=== PATIENT | male | born 1995 | race Caucasian/White ===

== ENCOUNTER 2019-07-04 15:07 | Inpatient (IN) | payer MEDICAID ==
[~2019-07-04] VITALS: Ht 182.9 cm; Wt 90.7 kg
--- NOTE | ~2019-07-04 | OP ---
[address] [address] OPERATIVE REPORT Name: WALESKA CAPUTO Room: [address] IN .R.#: [id number] Admission: 07/04/19 Attend Phys: Christofer Doyle Discharge: 07/05/19 Date of : 96 Report #: [id number] THIS REPORT FOR: //name// CC: Deshawn Alonzo DATE OF SERVICE: 07/05/2019 INDICATION FOR PROCEDURE: The patient is a 24-year-old gentleman who was admitted through the Emergency Department with severe left flank pain. Evaluation revealed a large 7 mm left ureteral calculus. After discussing treatment options in detail, he presents for cystoscopy with left ureteroscopic stone extraction with holmium laser lithotripsy and stent placement. PREOPERATIVE DIAGNOSIS: Large ureteral calculus. POSTOPERATIVE DIAGNOSIS: Large ureteral calculus. PROCEDURE: Cystoscopy, left retrograde pyelogram, left ureteroscopic stone extraction using holmium laser lithotripsy, left stent placement. SURGEON: Jed Lan MD ANESTHESIA: General. COMPLICATIONS: None. ESTIMATED BLOOD LOSS: 10 mL. PROCEDURE IN DETAIL: The patient was consented for the above procedure, given broad spectrum IV antibiotics preoperatively. He was given general anesthetic and placed in a dorsal lithotomy position, he was prepped and draped in the usual sterile fashion over the genitalia. The stone was not seen on fluoroscopy. Cystoscopy was performed with a 22-Welsh sheath and 30 degree lens, which was somewhat difficult due to a narrowed caliber urethra. I could look in easily with the 17-Welsh scope, but I could not work through the 17-Welsh scope, so I inserted the 22-Welsh scope. Gently I was able to get into the bladder, but it was fairly snug. Next, a left retrograde pyelogram was performed with a 5-Welsh Pollack catheter and half strength Omnipaque, which revealed a filling defect in the distal third of the ureter just below the vessels consistent with the stone seen on CT. Based on that, a 0.035 floppy-tipped guidewire was passed up the left ureter under fluoroscopic guidance. It was difficult to get this wire past the stone, so I had to use a combination of the Pollack catheter and a guidewire to access the ureter past the stone and was able to get the wire up into the renal pelvis without too much difficulty. Next, the cystoscope was removed leaving the guide[place] [address] OPERATIVE REPORT Name: WALESKA CAPUTO Room: [address]#: [id number] Admission: 07/04/19 Attend Phys: Christofer oDyle Discharge: 07/05/19 Date of : 96 Report #: [id number] The semirigid ureteroscope was used to attempt ureteroscopy, but its ureteral orifice was too snug for the scope to pass. So, the scope was removed. The trocar for an 11/13 Welsh ureteral access sheath was passed over the wire and up the distal ureter under fluoroscopic guidance for a soft ureteral dilation. The trocar was removed. Ureteroscope was replaced and I was able to perform ureteroscopy alongside the wire until this large stone was identified. Next, a 365 micron holmium laser was used to fragment the stone into manageable size pieces. All the larger pieces were removed and deposited in the bladder. The remaining pieces all appeared to be very small and passable after removing several large stone fragments. Once I was confident that all the larger stones were removed, I removed the ureteroscope, backloaded the cystoscope over the guidewire, reinserted the cystoscope and then placed a 4.8 x 28 double-J stent over the wire with good curl noted in the renal pelvis and into the bladder after removing the wire. This was confirmed with fluoroscopy and cystoscopy. The fragments were then removed from the bladder via the cystoscope sheath. The cystoscope was removed. Lidocaine gel was placed per urethra for local anesthesia. The patient was awakened and sent to recovery room in stable condition. We will leave the stent in for 1 week and remove it in the office. By: [id number] Lan MD /claudia
[2019-07-04 15:22] VITALS: BP 146/89
[2019-07-04 15:39] LABS: URINE BILIRUBIN NEGATIVE (Negative); URINE BLOOD 2+ (Negative); URINE COLOR YELLOW; URINE GLUCOSE-RANDOM NEGATIVE (Negative); URINE KETONES NEGATIVE (Negative); URINE LEUKOCYTES-REFLEX TRACE (Negative); URINE NITRITE-REFLEX NEGATIVE (Negative); URINE PROTEIN TRACE (Negative); URINE UROBILINOGEN 0.2 E.U./dl (0.2-1.0)
[2019-07-04 15:46] LABS: ABSOLUTE BASOPHILS 0.1 thou/uL (0.0-0.2); ABSOLUTE EOSINOPHILS 0.7 thou/uL (0.0-0.7); ABSOLUTE LYMPHOCYTES 2.9 thou/uL (0.8-5.3); ABSOLUTE MONOCYTES 1.5 thou/uL (0.0-1.2); BASOPHILS 0.8 %; EOSINOPHILS 4.9 %; HEMATOCRIT 42.2 % (42.0-52.0); HEMOGLOBIN 14.6 gm/dL (14.0-18.0); LYMPHOCYTES 20.6 %; MCH 31.2 pg (26.0-34.0); MCHC 34.7 g/dL (28.0-37.0); MCV 89.9 fL (80.0-100.0); MONOCYTES 10.4 %; MPV 10.1 fl. (7.2-11.1); NUCLEATED RBCS 0 /100WBC; PLATELET COUNT* 247 thou/uL (150-400); POLYS 63.3 %; RDW-CV 13.3 % (10.5-14.5); WBC 14.2 thou/uL (4.0-11.0)
[2019-07-04 15:47] LABS: URINE CLARITY HAZY
[2019-07-04 15:54] LABS: CREATININE 1.5 mg/dL (0.6-1.3); POTASSIUM 5.9 mmol/L (3.5-5.1)
[2019-07-04 15:55] LABS: BACTERIA-REFLEX None Seen /HPF (None Seen); CASTS None Seen /LPF (None Seen); CRYSTALS None Seen /LPF (None Seen); MUCUS 0-3 Light strn/LPF (None Seen); SQUAMOUS 4-10 Moderate /LPF (0-3); URINE WBC-REFLEX None Seen /HPF (0-5)
[2019-07-04 15:58] LABS: ALBUMIN 3.9 g/dL (3.4-5.0); TOTAL BILIRUBIN 0.7 mg/dL (<0.1-1.0); TOTAL PROTEIN 7.5 g/dL (6.4-8.2)
[2019-07-04 20:28] VITALS: BP 118/78
[2019-07-04 20:40] VITALS: BP 131/80
--- NOTE | 2019-07-05 05:29 | NUR ---
PT ARRIVED FROM THE ER AT 2029. VITALS STABLE RA. IV FLUIDS RUNNING ORDERED. PT SLEEPING QUIETLY THROUGH THE NIGHT. PAIN CONTROLLED WITH FENTANYL. NO C/O NAUSEA OR VOMITING. UP AD CARLY. GIRLFRIEND AT BEDSIDE. WILL CONTINUE TO MONITOR.
[2019-07-05 08:10] VITALS: BP 125/81
[2019-07-05 10:40] LABS: HEMATOCRIT 41.9 % (42.0-52.0); HEMOGLOBIN 14.5 gm/dL (14.0-18.0); MCH 31.1 pg (26.0-34.0); MCHC 34.6 g/dL (28.0-37.0); MPV 10.5 fl. (7.2-11.1); RBC 4.66 mil/uL (4.50-6.00); WBC 10.1 thou/uL (4.0-11.0)
[2019-07-05 10:53] LABS: CALCIUM 8.2 mg/dL (8.5-10.1); CREATININE 1.3 mg/dL (0.6-1.3)
[2019-07-05 10:54] LABS: POTASSIUM 3.8 mmol/L (3.5-5.1)
[2019-07-05 13:53] VITALS: BP 125/81; BP 142/49
[2019-07-05] MEDS ORDERED: CIPRO500 M1 PO (15:25)
[2019-07-05] MEDS ORDERED: NICOTINE TRANSD21 M1 TOP (15:26)
[2019-07-05 15:27] VITALS: BP 142/49
--- NOTE | 2019-07-05 18:05 | NUR ---
PATIENT IN PACU SINCE 1414. IVF AND SCHED ABX GIVEN THIS SHIFT ORDERED. PER DAT FROM PACU PATIENT MAY DISCHARGE TO HOME THIS EVENING. DISCHARGE PAPERS COMPLETE FROM DR. CHÁVEZ. AWAITING PATIENT TO RETURN TO ROOM. REG DIET RESUMED.
[2019-07-05 18:28] VITALS: BP 143/83
--- NOTE | 2019-07-05 19:06 | NUR ---
PATIENT BACK FROM PACU AT 1800, RATING SCROTAL PAIN A 3/10. PRN HYDROCODONE GIVEN WITH GOOD RELIEF NOTED. IV DC'D. PATIENT TOLERATED REG DIET. VERBALIZES UNDERSTANDING OF PAPEWORK AND SCRIPTS. PATIENT AMBULATED OUT WITH ALL BELONGINGS AND NURSING STAFF.
== END 2019-07-05 19:08 | disposition home or self-care (01) | DRG 661 ==
LOC: M.ERS 15:07 → EDBD 16:54 → M.TBA-ER 16:54 → M.ORTHSURG 16:54
PROVIDERS: Family Medicine; Nurse Practitioner Adult Health; ADMIT Internal Medicine
PROC: 0TC78ZZ Extirpation of Matter from Left Ureter, Via Natural or Artificial Opening Endoscopic (ICD-10-PCS; principal; 2019-07-05)
PROC: BT1F1ZZ Fluoroscopy of Left Kidney, Ureter and Bladder using Low Osmolar Contrast (ICD-10-PCS; principal; 2019-07-05)
PROC: 0T778DZ Dilation of Left Ureter with Intraluminal Device, Via Natural or Artificial Opening Endoscopic (ICD-10-PCS; principal; 2019-07-05)
DX: N13.2 Hydronephrosis with renal and ureteral calculous obstruction (principal); F17.210 Nicotine dependence, cigarettes, uncomplicated; R31.29 Other microscopic hematuria; Z88.6 Allergy status to analgesic agent; Z87.442 Personal history of urinary calculi; Z84.1 Family history of disorders of kidney and ureter

== ENCOUNTER 2019-07-11 16:17 | Inpatient (IN) | payer MEDICAID ==
[~2019-07-11] VITALS: Ht 182.9 cm; Wt 90.7 kg
--- NOTE | ~2019-07-11 | OP ---
[address] [address] OPERATIVE REPORT Name: WALESKA CAPUTO Room: [address] IN .R.#: [id number] Admission: 07/11/19 Attend Phys: Connor Zhang MD Discharge: Date of : 96 Report #: [id number] THIS REPORT FOR: //name// CC: Connor Alonzo DATE OF SERVICE: 07/13/2019 UROLOGY OPERATIVE NOTE PREOPERATIVE DIAGNOSIS: Left nephrolithiasis. POSTOPERATIVE DIAGNOSIS: Left nephrolithiasis. PROCEDURES PERFORMED: 1. Urethral dilation. 2. Cystoscopy. 3. Left ureteral stent removal. 4. Left ureteroscopy. Staff: Dr. Jayden Wolfe. COMPLICATIONS: None. DRAINS: None. SPECIMENS: None. ESTIMATED BLOOD LOSS: None. INDICATIONS: The patient is a 24-year-old gentleman who presented with a left distal ureteral stone and underwent ureteroscopy with Dr. Lan last week. He presented overnight with increasing left flank pain. CT demonstrated the left ureteral stent to have migrated distally into the proximal ureter. He had some mild hydronephrosis as well as what appeared to be a small ureteral fragment. Decision was made to proceed with ureteral stent removal and ureteroscopy. DESCRIPTION OF PROCEDURE: On 07/13/2019, after consent was obtained, the patient was taken to the operating room and placed in supine position. He was then placed under general anesthesia. He received preoperative IV Cipro for antibiotic coverage. He was then placed in dorsal lithotomy and his genitals were prepped and draped in normal sterile fashion. Next, I began the procedure by attempting to pass a 22.5-Irish rigid cystoscope with resistance at the urethral meatus. Urethral sounds were then utilized. I dilated the urethra from 18 to 26-Irish sequentially without difficulty. At this point, the 22.5-Irish cystoscope was inserted without difficulty. Once into the bladder, [place] [address] OPERATIVE REPORT Name: WALESKA CAPUTO Room: [address] IN [facility].#: [id number] Admission: 07/11/19 Attend Phys: Connor Zhang MD Discharge: Date of : 96 Report #: [id number] identified the left ureteral stent. Using alligator forceps to remove this without difficulty. I then tried to cannulate the left UO with a sensor wire; however, met resistance just within the UO. At this point, a 5-Irish open-ended stent was then inserted, and using this, I was able to cannulate the distal UO and a sensor wire was passed up the upper pole. I then went through the cystoscope and I backloaded the ureteroscope over the sensor wire, which was passed up to the renal pelvis under fluoroscopic guidance. I then performed ureteroscopy visualizing the entire ureter, which was free of any injury and/or stone burden. The distal left ureter did take an abrupt J hook, but good visualization was obtained and there was no evidence of any stone burden. At this point, I then reinserted the cystoscope. I evacuated out the bladder and observed efflux of urine from the left UO. The patient's bladder was emptied. Scope was withdrawn. I inserted a lidocaine lubricating into the urethra. By: [id number] Wolfe MD /nt
[~2019-07-11 16:17] MED LIST: CIPRO500 M1 PO; NICOTINE TRANSD21 M1 TOP
[2019-07-11 16:27] VITALS: BP 133/99
[2019-07-11 16:40] LABS: URINE BILIRUBIN NEGATIVE (Negative); URINE BLOOD 3+ (Negative); URINE CLARITY SL CLOUDY; URINE COLOR YELLOW; URINE GLUCOSE-RANDOM NEGATIVE (Negative); URINE KETONES NEGATIVE (Negative); URINE LEUKOCYTES-REFLEX 1+ (Negative); URINE NITRITE-REFLEX NEGATIVE (Negative); URINE PROTEIN 2+ (Negative); URINE SPECIFIC GRAVITY 1.025 (1.005-1.030); URINE UROBILINOGEN 0.2 E.U./dl (0.2-1.0)
[2019-07-11 16:46] LABS: SQUAMOUS >10 Many /LPF (0-3)
[2019-07-11 16:48] LABS: BACTERIA-REFLEX >30 Many /HPF (None Seen); URINE RBC >20 Many /HPF (0-2)
[2019-07-11 16:49] LABS: CASTS None Seen /LPF (None Seen); CRYSTALS None Seen /LPF (None Seen); MUCUS None Seen strn/LPF (None Seen)
[2019-07-11 17:06] LABS: ABSOLUTE BASOPHILS 0.1 thou/uL (0.0-0.2); ABSOLUTE EOSINOPHILS 0.8 thou/uL (0.0-0.7); ABSOLUTE LYMPHOCYTES 3.2 thou/uL (0.8-5.3); ABSOLUTE MONOCYTES 0.7 thou/uL (0.0-1.2); ABSOLUTE NEUTROPHILS 6.2 thou/uL (1.6-8.1); BASOPHILS 0.6 %; EOSINOPHILS 7.2 %; HEMATOCRIT 44.6 % (42.0-52.0); HEMOGLOBIN 15.3 gm/dL (14.0-18.0); LYMPHOCYTES 29.2 %; MCH 31.2 pg (26.0-34.0); MCHC 34.2 g/dL (28.0-37.0); MONOCYTES 6.6 %; MPV 9.9 fl. (7.2-11.1); NUCLEATED RBCS 0 /100WBC; PLATELET COUNT* 317 thou/uL (150-400); POLYS 56.4 %; RDW-CV 12.9 % (10.5-14.5)
[2019-07-11 17:15] LABS: ALBUMIN 4.4 g/dL (3.4-5.0); CALCIUM 9.4 mg/dL (8.5-10.1); CREATININE 1.1 mg/dL (0.6-1.3); POTASSIUM 3.8 mmol/L (3.5-5.1); TOTAL BILIRUBIN 0.5 mg/dL (<0.1-1.0); TOTAL PROTEIN 8.3 g/dL (6.4-8.2)
[2019-07-11 19:46] VITALS: BP 147/93
[2019-07-11 20:00] VITALS: BP 135/85
[2019-07-12] MEDS ORDERED: FLOMAX0.4 MG PO (03:35)
[2019-07-12] MEDS ORDERED: NORCO 5-325 TA1 EAC1 PO (03:36)
[2019-07-12] MEDS ORDERED: NICOTINE TRANSD21 M1 TOP (03:36)
[2019-07-12 04:00] VITALS: BP 123/78
--- NOTE | 2019-07-12 05:53 | NUR ---
PATIENT ARRIVED ON FLOOR FROM ER AT ABOUT 1950. PATIENT ADMISSION HISTORY AND ASSESSMENT WAS COMPLETED CHARTED. PATIENT WAS RECENTLY HERE LAST FRIDAY FOR KIDNEY STONE HAD A STENT PLACED. PATIENT STATED PAIN WAS CONTROLLED UNTIL 2 DAYS AGO PAIN GOT WORSE. ASKED PATIENT IS THE HYDROCODONE WAS HELPING AT HOME PATIENT STATES HE RAN OUT OF IT. IV FLUIDS WERE STARTED AT 100 ML/HR. PATIENT WAS GIVEN PAIN MEDICINE ABOUT EVERY TWO HOURS AND WAS GIVEN NAUSEA MEDICINE ONCE. PATIENT HAS BEEN NPO SINCE MIDNIGHT IN CASE OF POSSIBLE PROCEDURE. WILL CONTINUE TO MONITOR.
[2019-07-12 08:00] VITALS: BP 133/78
[2019-07-12 16:58] VITALS: BP 128/72
--- NOTE | 2019-07-12 17:57 | NUR ---
PT RESTS IN BED WITH IV FLUIDS INFUSING TO RT.FA PER PUMP. PRN FOR PAIN GIVEN WITH GOOD TO FAIR EFFECT USEING IV AND PO THIS AFTERNOON. PT TOLERATES LIGHT MEAL THIS EVENING AND DENIES NAUSEA. LEVSIN GIVEN WITH GOOD EFFECT. PT REMAINS ALERT AND ORIENTATED AND HAS AMBULATED IN [place] EARLIER. PT VOIDS CLEAR YELLOW URINE.PT TO BE NPO AFTER MIDNIGHT FOR SURGERY TOMORROW AFTERRNOON.
[2019-07-12 21:00] VITALS: BP 141/88
[2019-07-13 04:08] VITALS: BP 128/72
[2019-07-13 04:16] LABS: CALCIUM 8.6 mg/dL (8.5-10.1); CREATININE 0.9 mg/dL (0.6-1.3); POTASSIUM 3.7 mmol/L (3.5-5.1)
[2019-07-13 04:26] LABS: ABSOLUTE BASOPHILS 0.1 thou/uL (0.0-0.2); ABSOLUTE EOSINOPHILS 0.8 thou/uL (0.0-0.7); ABSOLUTE LYMPHOCYTES 3.5 thou/uL (0.8-5.3); ABSOLUTE MONOCYTES 0.5 thou/uL (0.0-1.2); BASOPHILS 0.8 %; EOSINOPHILS 9.4 %; HEMOGLOBIN 13.5 gm/dL (14.0-18.0); LYMPHOCYTES 39.2 %; MCH 30.9 pg (26.0-34.0); MCHC 33.7 g/dL (28.0-37.0); MCV 91.6 fL (80.0-100.0); MONOCYTES 5.6 %; MPV 9.8 fl. (7.2-11.1); NUCLEATED RBCS 0 /100WBC; PLATELET COUNT* 265 thou/uL (150-400); RBC 4.36 mil/uL (4.50-6.00); RDW-CV 13.2 % (10.5-14.5); WBC 8.9 thou/uL (4.0-11.0)
--- NOTE | 2019-07-13 06:51 | NUR ---
PATIENT HAS SLEPT OFF AND ON DURING THE SHIFT. VSS ON RA. PAIN MEDICATION GIVEN ORDERED AND CHARTED. PATIENT HAS REMAINED NPO SINCE MIDNIGHT D/T SCHEDULED PROCEDURE TODAY. FAMILY IN ROOM AT BEDSIDE. CONSENT SIGNED. IV IN RIGHT FOREARM-NS @ 100ML/HR. PATIENT INSTRUCTED TO USE CALL LIGHT WHEN NEEDING ASSISTANCE. HOURLY ROUNDS MADE. WILL CONTINUE WITH PLAN OF CARE AND NURSING TO MONITOR.
[2019-07-13 07:30] VITALS: BP 140/92
[2019-07-13 12:58] VITALS: BP 128/72
--- NOTE | 2019-07-13 17:46 | NUR ---
ASSUMED CARE OF PATIENT AT APPROX 0730. ALERT AND ORIENTED X4. ASSESSMENT COMPLETED AND CHARTED. VSS ON ROOM AIR. PAIN MANAGED WITH IV FENTANYL EVERY 2-3 HOURS. FLUIDS AND ANTIBIOTICS INFUSED ORDERED. PATIENT TO PACU AT APPROX 1300 AND I WENT TO GET HIM FROM PACU TO RETRURN TO HIS ROOM AT 1700. PATIENT REMAINS ALERT AND ORIENTED AND VITALS REMAIN STABLE ON ROOM AIR. PAIN CONTROLLED WITH DOSE OF IV DILAUDID GIVEN IN PACU AT 1700. PATIENT ON REGULAR DIET AND TOLERATING WELL. NO COMPLAINTS AT THIS TIME. PATIENT AGREED TO CALL AND HAVE SOMEONE IN THE ROOM WHEN HE GETS UP TO USE THE BATHROOM FOR THE FIRST TIME AFTER HIS PROCEDURE. CALL LIGHT WITHIN REACH. HOURLY ROUNDS COMPLETED WHILE PATIENT HAS BEEN ON THE UNIT. WILL CONTINUE TO MONITOR.
[2019-07-13 18:11] VITALS: BP 128/72
--- NOTE | 2019-07-13 18:31 | NUR ---
PATIENT DISCHARGED AT 1830 WITH ALL PERSONAL BELONGNINGS, PRESCRIPTIONS AND DISCHARGE INFORMATION.
== END 2019-07-13 18:30 | disposition home or self-care (01) | DRG 699 ==
LOC: M.ERS 16:17 → M.TBA-ER 18:46 → M.ORTHSURG 18:46
PROVIDERS: Internal Medicine; Physician Assistant; ADMIT Internal Medicine
PROC: 0T7D8ZZ Dilation of Urethra, Via Natural or Artificial Opening Endoscopic (ICD-10-PCS; principal; 2019-07-13)
PROC: 0TP98DZ Removal of Intraluminal Device from Ureter, Via Natural or Artificial Opening Endoscopic (ICD-10-PCS; principal; 2019-07-13)
DX: T83.123A Displacement of other urinary stents, initial encounter (principal); N13.6 Pyonephrosis; Y83.8 Other surgical procedures as the cause of abnormal reaction of the patient, or of later complication, without mention of misadventure at the time of the procedure; F17.210 Nicotine dependence, cigarettes, uncomplicated; Z79.1 Long term (current) use of non-steroidal anti-inflammatories (NSAID); Z79.899 Other long term (current) drug therapy; Z88.5 Allergy status to narcotic agent; Y92.89 Other specified places as the place of occurrence of the external cause